=== PATIENT | female | born 1945 | race Caucasian/White ===

== ENCOUNTER 2017-03-17 17:57 | Inpatient (IN) ==
[2017-03-17] MEDS ORDERED: *HR* Morphine 2 MG/ML SYRINGE IVP ONE (18:49)
[2017-03-17] MEDS ORDERED: Ondansetron 4 MG/2 ML VIAL IVP ONE (18:49)
[2017-03-17] MEDS: 0.9 % Sodium Chloride 1,000 ML IVC SCH (19:01)
[2017-03-17 19:38] LABS: Basophils % 0.1 %; Eosinophils % 0.1 %; Hematocrit 40.5 % (35.3-44.9); Hemoglobin 12.8 g/dL (11.5-15.4); Immature Granulocytes % 2.9 % (0-4); Lymphocytes # 0.8 K/mcL (0.6-4.6); Lymphocytes % 3.5 %; Mean Corpuscular HGB Conc 31.6 g/dL (31.6-35.5); Mean Corpuscular Hemoglobin 28.6 pg (28.0-33.3); Mean Corpuscular Volume 90.6 fL (83.0-100.0); Mean Platelet Volume 10.4 fL (9.4-12.4); Monocytes # 1.2 K/mcL (0.0-1.3); Monocytes % 5.3 %; Neutrophils # 20.1 K/mcL (1.6-8.9); Platelet Count 165 K/mcL (140-400); Red Blood Count 4.47 M/mcL (3.82-4.97); Red Cell Distribution Width 14.1 % (11.5-14.5); Segmented Neutrophils % 88.1 %
[2017-03-17 19:54] LABS: Bilirubin,Direct 0.3 mg/dL (0.0-0.5); Bilirubin,Indirect 0.4 mg/dL (0.0-1.2); Bilirubin,Total 0.7 mg/dL (0.2-1.2); Calcium 10.5 mg/dL (8.6-10.8); Globulin 3.1 g/dL (2.4-3.5); Potassium 4.7 mEq/L (3.5-4.5); Total Protein 6.1 g/dL (6.0-8.3)
[2017-03-17] MEDS ORDERED: 0.9 % Sodium Chloride 1,000 ML IVC ONE (20:01)
--- NOTE | 2017-03-17 20:01 | Emergency Department Note ---
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.0 - Congenital hydronephrosis Sepsis Qualifiers: Sepsis type: sepsis due to unspecified organism Qualified Code(s): A41.9 - Sepsis, unspecified organism Disposition: Admitted As Inpatient Condition: Good Referrals: Belinda Cleaning, [facility] [employer] [Primary Care Provider] - Forms: Work/School Release, ED Satisfaction Letter Time of Disposition: 21:56 Abdominal Pain HPI - General Chief Complaint: ED Abdominal Pain Stated Complaint: RLQ pain Time Seen by Provider: 03/17/17 18:32 Source: patient Mode of arrival: ambulatory Limitations: no limitations Nursing Notes Reviewed: Yes Vital Signs Reviewed: Yes - History of Present Illness HPI Narrative: Patient presents emergency room complaining of acute onset right lower quadrant abdominal pain. Patient's symptoms came on acutely this morning. Since then she has had pain in the right lower quadrant of her abdomen and has not been able to eat or drink anything. Denies any fevers or chills chest features of breath headache or vision change. Main complaint is symptoms the right lower part of her abdomen. Denies any trauma or injury. Pt Subjective Complaint: abdominal pain Onset (ago): hour(s) Consistency: constant Location: RLQ Pain Severity: mild Pain Scale: 0 Quality: aching Radiation: RLQ Migration to: no migration Improves with: nothing Worsens with: nothing Context: history of similar episodes Associated symptoms: Reports: nausea, vomiting. Denies: diarrhea, fever, chills , constipation Treatments prior to arrival: none - Related Data Home Medications Medication Instructions Recorded Confirmed Aspirin Enteric Coated [Aspirin EC] 81 mg PO DAILY 03/17/17 03/17/17 Propranolol LA (24 HR) [Inderal LA] 60 mg PO DAILY 03/17/17 03/17/17 Ranitidine HCl [Acid Napper Runner] 150 mg PO DAILY PRN 03/17/17 03/17/17 predniSONE [PredniSONE] 5 mg PO DAILY 03/17/17 03/17/17 Allergies Allergy/AdvReac Type Severity Reaction Status Date / Time acetaminophen [From Midrin] AdvReac Unknown Verified 03/17/17 20:30 Amoxicillin [From Augmentin] AdvReac Vomiting Verified 03/17/17 20:30 clavulanic acid AdvReac Vomiting Verified 03/17/17 20:30 [From Augmentin] dichloralphenazone AdvReac Unknown Verified 03/17/17 20:30 [From Midrin] Iodinated Contrast- Oral and AdvReac Dizziness Verified 03/17/17 20:30 IV Dye Isometheptene AdvReac Unknown Verified 03/17/17 20:30 All systems ED: reviewed and negative except as stated. Constitutional: Denies: fever, chills Cardiovascular: Denies: chest pain, palpitations, dyspnea on exertion Respiratory: Denies: dyspnea, wheezes Gastrointestinal: Reports: abdominal pain, nausea, vomiting. Denies: diarrhea, constipation Genitourinary: Denies: dysuria, frequency Musculoskeletal: Denies: back pain, neck pain Neurological: Denies: headache Abdominal Pain PMH - Past Medical History Medical history: Reports: renal disease Female Surgical History: Reports: cholecystectomy, hysterectomy Psychiatric history: Reports: no psych history - Social History Smoking status: Never smoker Alcohol use: Reports: none Drug use: Reports: none Physical Exam - General Limitations: no limitations General appearance: alert - Chest Chest inspection: Present: normal inspection, symmetric chest wall rise. Absent : tenderness - Respiratory Respiratory exam: Present: normal lung sounds bilaterally. Absent: respiratory distress, wheezes, accessory muscle use - Cardiovascular Cardiovascular exam: Present: regular rate, normal rhythm, normal heart sounds - Abdominal Exam Abdominal exam: Present: soft, tenderness (Patient has abdominal pain the right lower quadrant of the abdomen.). Absent: Non-Tender, distention, guarding, rebound, rigidity - Extremities Exam Extremities exam: Present: normal inspection, full ROM, normal capillary refill. Absent: tenderness - Back Exam Back exam: Present: normal inspection - Neurological Exam Neurological exam: Present: alert, oriented X3 - Psychiatric Psychiatric exam: Present: normal affect, normal mood - Skin Skin exam: Present: warm, dry, intact, normal color Course Course Narrative: Patient seen and examined at the time of arrival. See history of present illness. 71-year-old female with onset of abdominal pain starting early persistent worsening right lower quadrant abdominal discomfort. She has had intermittent nausea and vomiting with noted diarrhea. Patient was concerned today because the symptoms were not getting any better. She presented to the emergency room secondary to the discomfort in her abdomen. She has never had any like this before. She does have a history of total hysterectomy. No other intra-abdominal pathology. On presentation here her blood pressure was low and her heart rate was elevated. An immediate bedside ultrasounds completed looking at the inferior vena cava and there is no visible signs of aneurysm dissection or free fluid in the abdomen. Patient had no specific tenderness in the midepigastric region radiating down the central aspect of the abdomen. All of her pain appeared to be isolated in the right lower quadrant of the abdomen. Patient is concerning for possible intra-abdominal pathology including renal calculi urinary tract infection appendicitis duodenitis, ileitis. Patient had imaging completed the abdomen at this time. Fluids pain medication nausea medication be given. Patient does not have any acute signs of infectious etiology she does have tachycardia but otherwise is afebrile. Patient will have symptom control completed here. The rest of her physical exam is benign. She did note that she had intermittent chest twinges yesterday and several days prior to that. EKG troponin and chest x-ray and on for thoroughness of evaluation. Disposition pending this workup and treatment course. Patient is resting in the bed at this time and no significant distress but is concerning for possible intra-abdominal pathology - Reevaluation(s) Reevaluation #1: Patient is still tachycardic after fluids and pain medication. Labs are coming back with significantly elevated white blood cell count. Kidney function appears to be at baseline. Incidentally troponin that was ordered secondary to her generalized complaint of chest discomfort and twinges in her chest wall was elevated at 0.16. Patient does not having chest pain and has not had any chest pain for greater than 24 hours. Her EKG shows normal morphology based on the rhythm here. Doing chest pain at this time. Patient provided with aspirin at this point. CT imaging was resulted showing right-sided obstructing renal stone with significant hydronephrosis and stranding around the kidney. Urinalysis is still pending. Patient has concerns for possible sepsis secondary to urinary tract infection. Prophylactically start antibiotics at this time. Initially patient did not have symptoms consistent with infectious etiology but has developed or been found to have potential infectious etiology at this time. Patient is stable antibiotics ordered disposition pending treatment course. Patient will need admission hospital definitively for either elevated troponin or renal calculi with urinary tract infection. Pulses responding to fluids. Patient's blood pressure is usually 90-100 systolic at home even without being ill.. Patient is on chronic steroid use OF stress dose steroids given at this time. She says if she feels much better at this time she sitting upright mentating. Blood pressure still appears to be labile but she does not appear to be focally septic at this time. And BE obtained Time: 20:23 Reevaluation #2: Patient found a urinary tract infections this time. Emergent consult placed to the urologist Dr. Choudhury for consult on impacted stone with infection. stress dose steroids given. admission to be completed. We reviewed the presentation obstructing stone and urinary tract infection. Recommended admission stabilization and possible stenting tomorrow. Consult with the hospitalist at this time. Consult placed in the chart at this point. Waiting for hospice to call back for admission process to be completed. Sepsis determined at 2145 hrs. Time: 21:36 Reevaluation #3: Patient discussed with the hospitalist Dr. Cole. We reviewed the presentation symptoms medical intervention as well as the antibiotics fluids and consultation discussed here in the emergency room. Recommendation at this time is to provide a second gram of Rocephin here in the ED and continue maintenance fluids. Patient is otherwise comfortable in the bed showing no acute signs of decompensation. [address] Patient will be evaluated and treated here in the emergency room to the admission process is completed Time: 22:08 Vital Signs Temperature 98.0 F 03/17/17 18:25 Pulse Rate 116 03/17/17 18:25 Respiratory Rate 18 03/17/17 18:25 Blood Pressure 97/66 03/17/17 18:25 O2 Sat by Pulse Oximetry 93 03/17/17 18:25 Temperature 98.0 F 03/17/17 18:25 Pulse Rate 113 03/17/17 19:33 Respiratory Rate 16 03/17/17 19:33 Blood Pressure 100/50 03/17/17 19:33 O2 Sat by Pulse Oximetry 94 03/17/17 19:33 Oxygen Delivery Oxygen Delivery Room Air Abdominal Pain - MDM Narrative Medical decision making narrative: Obstructing renal calculi, right-sided hydronephrosis, right-sided hydroureter elevated troponin - Medical Records Medical records reviewed: Yes I reviewed the patient's medical records. - Lab Data Lab results reviewed: Yes I reviewed the patient's lab results. Result diagrams: 03/17/17 19:30 07/17/17 19:30 Lab Results 03/17/17 03/17/17 Range/Units 19:30 19:30 WBC 22.8 H (4.3-11.1) K/mcL RBC 4.47 (3.82-4.97) M/mcL Hgb 12.8 (11.5-15.4) g/dL Hct 40.5 (35.3-44.9) % MCV 90.6 (83.0-100.0) fL MCH 28.6 (28.0-33.3) pg MCHC 31.6 (31.6-35.5) g/dL RDW 14.1 (11.5-14.5) % Plt Count 165 (140-400) K/mcL MPV 10.4 (9.4-12.4) fL Immature Gran % 2.9 (0-4) % Seg Neutrophils % 88.1 % Lymphocytes % 3.5 % Monocytes % 5.3 % Eosinophils % 0.1 % Basophils % 0.1 % Neutrophils # 20.1 H (1.6-8.9) K/mcL Lymphocytes # 0.8 (0.6-4.6) K/mcL Monocytes # 1.2 (0.0-1.3) K/mcL Eosinophils # 0.0 (0.0-0.6) K/mcL Basophils # 0.0 (0.0-0.2) K/mcL Sodium 136 (136-145) mEq/L Potassium 4.7 H (3.5-4.5) mEq/L Chloride 105 (98-109) mEq/L Carbon Dioxide 22 (19-29) mEq/L BUN 30 H (7-20) mg/dL Creatinine 1.59 H (0.57-1.11) mg/dL Est GFR ( Amer) 39 L (> 60) Est GFR (Non-Af Amer) 32 L (> 60) BUN/Creatinine Ratio 19 (6-26) Glucose 91 (70-99) mg/dL Calculated Osmolality 288 (280-300) Calcium 10.5 (8.6-10.8) mg/dL Total Bilirubin 0.7 (0.2-1.2) mg/dL Direct Bilirubin 0.3 (0.0-0.5) mg/dL Indirect Bilirubin 0.4 (0.0-1.2) mg/dL AST 30 (5-34) Units/L ALT 24 (0-55) Units/L Alkaline Phosphatase 100 (38-126) Units/L Serum Total Protein 6.1 (6.0-8.3) g/dL Albumin 3.0 L (3.5-5.0) g/dL Globulin 3.1 (2.4-3.5) g/dL Albumin/Globulin Ratio 1.0 L (1.1-2.2) Lipase 20 (8-78) Units/L - Radiology Data Radiology results reviewed: Yes I reviewed the patient's radiology results. CT imaging confirms right-sided instructing stone with hydronephrosis and hydroureter. Patient also has elevated troponin. - EKG Data EKG attestation: Yes I reviewed and interpreted this EKG. EKG shows normal: sinus rhythm, intervals, QRS complexes, ST-T waves Rate: tachycardia Rhythm: NSR [place]/QRS: normal When compared to previous EKG there are: no significant changes Interpretation: no acute changes, unchanged when compared to prior tracing (date ) (11/08/12) Critical Care Time Critical Care Time: Yes Total Critical Care Time: 45 Attestation: Critical care performed: Time is exclusive of separately billable procedures. Time includes: direct patient care, patient reassessment, coordination of patient care, interpretation of data (laboratory data, radiology data, and respiratory data), review of patient's medical records, medical consultation and documentation of patient care. Procedures included in critical care time: Procedures excluded from critical care time:
[2017-03-17] MEDS ORDERED: Aspirin 81 MG TAB.CHEW PO STA (20:07)
[2017-03-17 21:00] LABS: Bilirubin,Urine Negative (Negative); Blood,Urine Moderate (Negative); Clarity,Urine Slightly Cloudy (Clear); Color,Urine Yellow (Yellow); Glucose,Urine (UA) Normal (Normal); Ketones,Urine Negative (Negative); Leukocyte Esterase,Urine Large (Negative); Nitrite,Urine Negative (Negative); Protein,Urine 30 mg/dL (Neg-Trace); Urobilinogen,Urine Normal (Normal)
[2017-03-17] MEDS ORDERED: methylPREDNISolone 125 MG/2 ML VIAL IVP ONE (21:12)
[2017-03-17 21:17] LABS: Bacteria,Urine Many per hpf (None-Few); Squamous Epithelial Cell,Urine Few per lpf (None-Few); WBC,Urine 15-30 per hpf (0-3)
[2017-03-17] MEDS ORDERED: 0.9 % Sodium Chloride 1,000 ML IVC SCH (22:15)
[2017-03-17] MEDS ORDERED: Acetaminophen 325 MG TABLET PO PRN (22:58)
[2017-03-17] MEDS ORDERED: Ondansetron 4 MG/2 ML VIAL IVP PRN (22:58)
[2017-03-17] MEDS ORDERED: Naloxone 0.4 MG/ML INJ IVP PRN (22:58)
[2017-03-17] MEDS ORDERED: *HR* Morphine 2 MG/ML SYRINGE IVP PRN (22:58)
--- NOTE | 2017-03-17 23:14 | Internal Med History&Physical ---
Date of Encounter: 03/17/17 Time of Encounter: 23:09 Assessment and Plan (1) Pyelonephritis, acute Current visit: Yes Status: Acute 71 yo Female with right sided abdominal pain, known kidney stones, WBC of 22.8, elevated neutrophil count, lactic acid of 2.9, tachycardia, lower end of normal blood pressure associated with CT of the abdomen and pelvis demonstrating right- sided hydronephrosis and hydroureter with right distal ureter calcification measuring approximately 7 mm. Plan: - Patient has received 2 L normal saline bolus - Urine cultures collected - Currently receiving Rocephin IV and will receive Rocephin every 24 hours - Blood cultures collected and pending - Consult to urology for obstructing calculi. (2) Sepsis Current visit: Yes Status: Acute Sepsis secondary to obstructing calculi as described above. Suspect pyelonephritis. Plan: - Sepsis protocol - 2 L IV fluid provided - Lactic acid elevated, second lactic acid ordered and pending - Blood cultures collected - Urine culture collected - Patient receiving IV antibiotics. - Patient on 5 mg chronic prednisone at home, continue hydrocortisone every 8 hours in the setting of sepsis and low blood pressure. Qualifiers: Sepsis type: sepsis due to unspecified organism Qualified Code(s): A41.9 - Sepsis, unspecified organism (3) Acute kidney injury Current visit: Yes Status: Acute Acute kidney injury secondary to obstructing right calculi and distal ureter. Suspect improvement after removal of obstructing calculi. Plan: - Continue maintenance fluids - Monitor renal function with a.m. labs - Avoid nephrotoxic medications and renally dose antibiotics (4) Calculus of kidney Current visit: Yes Status: Acute Patient presenting with right lower quadrant abdominal pain, CT of the abdomen and pelvis demonstrates obstructing distal right ureter calculi. - Urology has been notified. - Nothing by mouth after midnight (5) Elevated troponin I level Current visit: Yes Status: Acute Elevated troponin at 0.16, likely secondary to tachycardia in the setting of sepsis. Patient without chest pain. Plan: - Trend troponins 3 - credit rating checker - EKG - Continue aspirin (6) Chronic steroid use Current visit: Yes Status: Acute Patient takes 5 mg prednisone daily and has been on a taper for roughly 6 weeks from 15 mg. Her blood pressure is slightly lower but not significantly hypotensive. She has received IV Solu-Medrol in the emergency department. Plan: - Continue 5 mg prednisone daily - Monitor blood pressure and if it becomes consistently hypotensive will provide stress dosing. Internal Medicine - H&P: HPI Chief complaint: Abdominal pain Admitted From: Emergency Dept Plans for Post Hospital Care: Home History of present illness: Ms. Garcia is a 71 year old female with unknown type of muscular dystrophy, chronic headaches and stage III kidney disease presented to [facility] with abdominal pain. She states that she woke up around 4:30 this morning abruptly with sharp right lower quadrant abdominal pain. She said that came on without warning and she did not have any other previous pain like this. She said she has had previous abdominal pain in the past but nothing like this. The pain is described as sharp radiating down to her groin and right back. Pain severity 10 out of 10 at its worse much improved with pain medications. At home she did take Tylenol to try to improve her pain without any relief. Associated symptoms include chills, diaphoresis, nausea vomiting, dry mouth. Position made her pain worse. She is unsure if there is any blood in her urine but not to her knowledge. She denies any chest pain, chest pressure at rest or with exertion or currently. She denies any heart disease. She denies any history of renal stones but has been seeing Dr. Bowers with nephrology for her stage III renal failure. She did have a history of by mouth calcium and hypercalcemia but not recently. For her muscle disorder she has been following with rheumatology and roughly 6 weeks ago was put back on by mouth prednisone with a slow taper. She continues to take prednisone at 5 mg orally daily. Discussion regarding her blood pressures she said on average her systolic blood pressure is around 110. Past Med Surg Social Fam HX - Past Medical History Medical history: renal disease Psychiatric history: no psych history - Social History Smoking Status: Never smoker Smokeless Tobacco Status: No Alcohol use: none Drug use: none - Family History Father Living Status: Hx Family Cardiac Disorders: Yes ([place]) Internal Medicine - H&P: Meds Aspirin Enteric Coated [Aspirin EC] 81 mg PO DAILY 03/17/17 [History] Propranolol LA (24 HR) [Inderal LA] 60 mg PO DAILY 03/17/17 [History] Ranitidine HCl [Acid Dry House Operator] 150 mg PO DAILY PRN 03/17/17 [History] predniSONE [PredniSONE] 5 mg PO DAILY 03/17/17 [History] Allergies acetaminophen [From Midrin] Adverse Reaction (Verified 03/17/17 20:30) Unknown Amoxicillin [From Augmentin] Adverse Reaction (Verified 03/17/17 20:30) Vomiting clavulanic acid [From Augmentin] Adverse Reaction (Verified 03/17/17 20:30) Vomiting dichloralphenazone [From Midrin] Adverse Reaction (Verified 03/17/17 20:30) Unknown Iodinated Contrast- Oral and IV Dye Adverse Reaction (Verified 03/17/17 20:30) Dizziness Isometheptene Adverse Reaction (Verified 03/17/17 20:30) Unknown All Systems PM: A 10-system review of systems was performed and is negative for pertinent findings except as documented above in the HPI. - Constitutional Constitutional: chills, fever(s), no night sweats - EENT Eyes: no change in vision, no discharge, no pain, no photophobia Ears: no ear discharge, no ear pain, no tinnitus Nose, mouth and throat: no dysphagia, no nasal discharge, no neck pain, no sore throat - Cardiovascular Cardiovascular ROS IM: no chest pain, no diaphoresis, no dyspnea, no lightheadedness, no palpitations, no syncope - Respiratory Respiratory: no cough, no dyspnea, no wheezing, no excessive phlegm production - Gastrointestinal Gastrointestinal: abdominal pain, nausea, vomiting, no diarrhea, no hematemesis , no hematochezia, no melena - Genitourinary Genitourinary: flank pain, no change in urinary stream, no dysuria, no hematuria - Musculoskeletal Musculoskeletal ROS IM: no numbness, no tingling - Integumentary Integumentary IM: no rash, no unusual bruising - Neurological Neurological ROS: no confusion, no convulsions, no focal weakness, no numbness, no tingling, no tremor(s) - Hematologic/Lymphatic Hematologic/Lymphatic: no easy bruising - Constitutional Vitals: Temp Pulse Resp BP Pulse Ox 98.0 F 107 18 95/64 94 03/17/17 18:25 03/17/17 22:03 03/17/17 22:34 03/17/17 22:34 03/17/17 22:03 Exam: General: Patient alert, awake, oriented 3, interactive, in no acute distress HEENT: Normocephalic, atraumatic, pupils equal reactive to light, nasal cavity patent and open septum median position, oral mucosa moist, uvula midline, neck supple trachea midline no palpable lymphadenopathy, no thyromegaly. Chest: Symmetric bilateral correlating with respiratory effort, effort nonlabored. Cardiac: Tachycardia,. no bruits appreciated bilateral carotids, Radial pulses 2 + bilateral, posterior tibial and dorsal pedal pulses 2+ bilateral. Respiratory: Clear to auscultation all lung epps Abdomen: Mildly distended, nontender, positive bowel sounds, no palpable masses appreciated on examination Extremities: Symmetric bilateral, bilateral lower extremities without erythema or edema patient moving all 4 extremities spontaneously. Spastic muscles of the forearm, bilaterally. Neurologic: No focal deficits appreciated on examination. Face symmetric, muscle strength symmetric bilateral upper and lower extremities. Internal Med - H&P Results - Labs CBC & Chem 7: 03/17/17 19:30 03/17/17 19:30
[2017-03-18] MEDS: 0.9 % Sodium Chloride 1,000 ML IVC SCH ×3 (00:13→19:43)
[2017-03-18 01:11] LABS: Basophils % 0.1 %; Hematocrit 31.7 % (35.3-44.9); Lymphocytes % 4.6 %; Mean Corpuscular HGB Conc 30.9 g/dL (31.6-35.5); Mean Corpuscular Hemoglobin 28.4 pg (28.0-33.3); Mean Corpuscular Volume 91.9 fL (83.0-100.0); Mean Platelet Volume 10.1 fL (9.4-12.4); Monocytes # 0.9 K/mcL (0.0-1.3); Platelet Count 130 K/mcL (140-400); Red Blood Count 3.45 M/mcL (3.82-4.97); Red Cell Distribution Width 14.1 % (11.5-14.5); Segmented Neutrophils % 88.3 %
[2017-03-18 01:25] LABS: Bilirubin,Direct 0.3 mg/dL (0.0-0.5); Bilirubin,Indirect 0.2 mg/dL (0.0-1.2); Bilirubin,Total 0.5 mg/dL (0.2-1.2); Globulin 2.2 g/dL (2.4-3.5); Hemoglobin 9.8 g/dL (11.5-15.4)
[2017-03-18 01:26] LABS: Albumin 2.3 g/dL (3.5-5.0); Total Protein 4.5 g/dL (6.0-8.3)
[2017-03-18 01:28] LABS: Albumin 2.4 g/dL (3.5-5.0); Albumin/Globulin Ratio 1.1 (1.1-2.2); Bilirubin,Total 0.5 mg/dL (0.2-1.2); Globulin 2.2 g/dL (2.4-3.5); Magnesium 0.9 mg/dL (1.6-2.6); Phosphorous 3.3 mg/dL (2.3-4.7); Potassium 4.1 mEq/L (3.5-4.5); Total Protein 4.6 g/dL (6.0-8.3)
[2017-03-18 01:31] LABS: Calcium 8.2 mg/dL (8.6-10.8)
[2017-03-18 01:45] LABS: Platelet Estimate Decreased (Normal)
[2017-03-18] MEDS ORDERED: *HR* Enoxaparin 40 MG/0.4 ML SYRINGE SQ SCH (06:00)
[2017-03-18] MEDS ORDERED: Pantoprazole 40 MG VIAL IVP SCH (06:30)
--- NOTE | 2017-03-18 07:20 | Urology - Consult Note ---
Date of Encounter: 03/18/17 Time of Encounter: 07:18 - Assessment and Plan (1) Right ureteral calculus Current Visit: Yes Status: Acute Assessment and plan: Patient will be taken to the operating room today for cystoscopy and right ureteral stent placement (2) Pyelonephritis, acute Current Visit: Yes Status: Acute Assessment and plan: Agree with continuation of broad-spectrum antibiotics until cultures return. Urology CN:HPI Consult date: 03/18/17 Reason for consult Urology: Hydronephrosis Requesting physician: Omer Floyd History of present illness: Jayda is a 71-year-old female with a history of severe right-sided flank pain which brought her to the emergency department. Patient was found to have a distal right 7 mm ureteral stone with multiple bilateral renal calculi. Patient was also found to be in sepsis with a white count of 22,000. Patient states that she feels slightly better this morning. Her pain is currently controlled. Past Med Surg Social Fam HX - Past Medical History Medical history: renal disease Psychiatric history: no psych history - Past Surgical History Surgical History: hysterectomy - Social History Smoking Status: Never smoker Smokeless Tobacco Status: No Alcohol use: none Drug use: none - Family History Father Living Status: Hx Family Cardiac Disorders: Yes ([place]) Medications and Allergies Aspirin Enteric Coated [Aspirin EC] 81 mg PO DAILY 03/17/17 [History] Propranolol LA (24 HR) [Inderal LA] 60 mg PO DAILY 03/17/17 [History] Ranitidine HCl [Acid Intensive Care Nurse] 150 mg PO DAILY PRN 03/17/17 [History] predniSONE [PredniSONE] 5 mg PO DAILY 03/17/17 [History] Allergies acetaminophen [From Midrin] Adverse Reaction (Verified 03/17/17 20:30) Unknown Amoxicillin [From Augmentin] Adverse Reaction (Verified 03/17/17 20:30) Vomiting clavulanic acid [From Augmentin] Adverse Reaction (Verified 03/17/17 20:30) Vomiting dichloralphenazone [From Midrin] Adverse Reaction (Verified 03/17/17 20:30) Unknown Iodinated Contrast- Oral and IV Dye Adverse Reaction (Verified 03/17/17 20:30) Dizziness Isometheptene Adverse Reaction (Verified 03/17/17 20:30) Unknown Review of Systems - Constitutional no fever(s) - EENT Nose, mouth and throat: no dizziness - Cardiovascular no chest pain - Respiratory no cough - Gastrointestinal abdominal pain - Genitourinary Genitourinary: as per HPI (Patient states that she has vaginal prolapse) - Musculoskeletal back pain - Integumentary no erythema - Neurological no confusion - Psychiatric no anxiety Exam Initial Vital Signs Temp Pulse Resp BP Pulse Ox 98.0 F 116 18 97/66 93 03/17/17 18:25 03/17/17 18:25 03/17/17 18:25 03/17/17 18:25 03/17/17 18:25 - General physical appearance Present: well developed - Eyes Present: PERRL - ENT Present: normal nares - Neck Present: no masses - Respiratory Present: normal respiratory effort - Cardiovascular Cardiovascular exam IM: RRR - Abdomen Abdomen: Present: soft Urology Results - Labs 03/18/17 00:55 03/18/17 00:55 Abnormal lab results WBC 22.6 K/mcL (4.3-11.1) H 03/18/17 00:55 RBC 3.45 M/mcL (3.82-4.97) L 03/18/17 00:55 Hgb 9.8 g/dL (11.5-15.4) L D 03/18/17 00:55 Hct 31.7 % (35.3-44.9) L 03/18/17 00:55 MCHC 30.9 g/dL (31.6-35.5) L 03/18/17 00:55 Plt Count 130 K/mcL (140-400) L 03/18/17 00:55 Neutrophils # 20.0 K/mcL (1.6-8.9) H 03/18/17 00:55 Platelet Estimate Decreased (Normal) L 03/18/17 00:55 Chloride 113 mEq/L (98-109) H 03/18/17 00:55 Carbon Dioxide 18 mEq/L (19-29) L 03/18/17 00:55 BUN 29 mg/dL (7-20) H 03/18/17 00:55 Creatinine 1.37 mg/dL (0.57-1.11) H 03/18/17 00:55 Est GFR ( Amer) 46 (> 60) L 03/18/17 00:55 Est GFR (Non-Af Amer) 38 (> 60) L 03/18/17 00:55 Calcium 8.2 mg/dL (8.6-10.8) L D 03/18/17 00:55 Magnesium 0.9 mg/dL (1.6-2.6) L 03/18/17 00:55 Troponin I 0.06 ng/mL (0-0.03) H* 03/18/17 05:16 Serum Total Protein 4.6 g/dL (6.0-8.3) L D 03/18/17 00:55 Albumin 2.4 g/dL (3.5-5.0) L 03/18/17 00:55 Globulin 2.2 g/dL (2.4-3.5) L 03/18/17 00:55 Urine Clarity Slightly Cloudy (Clear) A 03/17/17 20:39 Urine Protein 30 mg/dL (Neg-Trace) H 03/17/17 20:39 Urine Blood Moderate (Negative) H 03/17/17 20:39 Ur Leukocyte Esterase Large (Negative) H 03/17/17 20:39 Urine Microscopic RBC 3-5 per hpf (0-3) H 03/17/17 20:39 Urine Microscopic WBC 15-30 per hpf (0-3) H 03/17/17 20:39 Urine Bacteria Many per hpf (None-Few) H 03/17/17 20:39 Ur Culture Indicated? YES (NO) A 03/17/17 20:39 All other labs normal. - Imaging CT scan - abdomen: image reviewed CT scan - pelvis: image reviewed Consult Discharge Plan - Plan Referrals: Belinda Cleaning, CALCULATION REVIEWER [Primary Care Provider] -
[2017-03-18] MEDS ORDERED: predniSONE 5 MG TABLET PO SCH (09:00)
[2017-03-18] MEDS ORDERED: Aspirin Enteric Coated 81 MG Tablet PO SCH (09:00)
[2017-03-18] MEDS ORDERED: Propranolol LA (24 HR) 60 MG CAP.SA.24H PO SCH (09:00)
--- NOTE | 2017-03-18 10:59 | Anesthesia Evaluation PreOp ---
Date of Encounter: 03/18/17 Time of Encounter: 10:49 - Past History Planned Operation: C&P/R-stent Cardiac History: [place] (Troponin bump this hospitalization - likely secondary to demand ischemia [Tachy/sepsis]) Pulmonary History: Denies Any Significant HX PASSENGER TIRE BUILDER History: Denies Any Significant HX Other Medical History: Renal (CKD stage 3. R-ureteral calculus & obstructive uropathy this hospitalization), Other (Chronic Steroid use 5mg/day re: muscular disorder vs. Muscular Dystrophy? (6 week taper down from 15mg - per Rheumatology )) Anesthesia History: No Prior Anesthetic Complications, Past Anesthesia (Hernia, ARNAV, shoulder RCR, L-leg x 3 surgeries) Alcohol Use: none Drug use: none Medications and Allergies Aspirin Enteric Coated [Aspirin EC] 81 mg PO DAILY 03/17/17 [History] Propranolol LA (24 HR) [Inderal LA] 60 mg PO DAILY 03/17/17 [History] Ranitidine HCl [Acid Nuclear Powerplant Mechanic Helper] 150 mg PO DAILY PRN 03/17/17 [History] predniSONE [PredniSONE] 5 mg PO DAILY 03/17/17 [History] Allergies acetaminophen [From Midrin] Adverse Reaction (Verified 03/17/17 20:30) Unknown Amoxicillin [From Augmentin] Adverse Reaction (Verified 03/17/17 20:30) Vomiting clavulanic acid [From Augmentin] Adverse Reaction (Verified 03/17/17 20:30) Vomiting dichloralphenazone [From Midrin] Adverse Reaction (Verified 03/17/17 20:30) Unknown Iodinated Contrast- Oral and IV Dye Adverse Reaction (Verified 03/17/17 20:30) Dizziness Isometheptene Adverse Reaction (Verified 03/17/17 20:30) Unknown - Meds/Allergy Pre-op Review Medications Reviewed: Yes Allergies Reviewed: Yes Beta Blockers on Current Med List: No Anesthesia Results - Labs 03/18/17 00:55 03/18/17 00:55 Laboratory Results WBC 22.6 K/mcL (4.3-11.1) H 03/18/17 00:55 RBC 3.45 M/mcL (3.82-4.97) L 03/18/17 00:55 Hgb 9.8 g/dL (11.5-15.4) L D 03/18/17 00:55 Hct 31.7 % (35.3-44.9) L 03/18/17 00:55 MCV 91.9 fL (83.0-100.0) 03/18/17 00:55 MCH 28.4 pg (28.0-33.3) 03/18/17 00:55 MCHC 30.9 g/dL (31.6-35.5) L 03/18/17 00:55 RDW 14.1 % (11.5-14.5) 03/18/17 00:55 Plt Count 130 K/mcL (140-400) L 03/18/17 00:55 MPV 10.1 fL (9.4-12.4) 03/18/17 00:55 Immature Gran % 3.0 % (0-4) 03/18/17 00:55 Seg Neutrophils % 88.3 % 03/18/17 00:55 Lymphocytes % 4.6 % 03/18/17 00:55 Monocytes % 4.0 % 03/18/17 00:55 Eosinophils % 0.0 % 03/18/17 00:55 Basophils % 0.1 % 03/18/17 00:55 Neutrophils # 20.0 K/mcL (1.6-8.9) H 03/18/17 00:55 Lymphocytes # 1.0 K/mcL (0.6-4.6) 03/18/17 00:55 Monocytes # 0.9 K/mcL (0.0-1.3) 03/18/17 00:55 Eosinophils # 0.0 K/mcL (0.0-0.6) 03/18/17 00:55 Basophils # 0.0 K/mcL (0.0-0.2) 03/18/17 00:55 Platelet Estimate Decreased (Normal) L 03/18/17 00:55 Sodium 137 mEq/L (136-145) 03/18/17 00:55 Potassium 4.1 mEq/L (3.5-4.5) 03/18/17 00:55 Chloride 113 mEq/L (98-109) H 03/18/17 00:55 Carbon Dioxide 18 mEq/L (19-29) L 03/18/17 00:55 BUN 29 mg/dL (7-20) H 03/18/17 00:55 Creatinine 1.37 mg/dL (0.57-1.11) H 03/18/17 00:55 Est GFR ( Amer) 46 (> 60) L 03/18/17 00:55 Est GFR (Non-Af Amer) 38 (> 60) L 03/18/17 00:55 BUN/Creatinine Ratio 21 (6-26) 03/18/17 00:55 Glucose 84 mg/dL (70-99) 03/18/17 00:55 Calculated Osmolality 289 (280-300) 03/18/17 00:55 Lactic Acid 1.2 mmol/L (0.5-2.2) 03/18/17 00:55 Calcium 8.2 mg/dL (8.6-10.8) L D 03/18/17 00:55 Phosphorus 3.3 mg/dL (2.3-4.7) 03/18/17 00:55 Magnesium 0.9 mg/dL (1.6-2.6) L 03/18/17 00:55 Total Bilirubin 0.5 mg/dL (0.2-1.2) 03/18/17 00:55 Direct Bilirubin 0.3 mg/dL (0.0-0.5) 03/18/17 00:55 Indirect Bilirubin 0.2 mg/dL (0.0-1.2) 03/18/17 00:55 AST 21 Units/L (5-34) 03/18/17 00:55 ALT 18 Units/L (0-55) 03/18/17 00:55 Alkaline Phosphatase 69 Units/L (38-126) 03/18/17 00:55 Troponin I 0.06 ng/mL (0-0.03) H* 03/18/17 05:16 Serum Total Protein 4.6 g/dL (6.0-8.3) L D 03/18/17 00:55 Albumin 2.4 g/dL (3.5-5.0) L 03/18/17 00:55 Globulin 2.2 g/dL (2.4-3.5) L 03/18/17 00:55 Albumin/Globulin Ratio 1.1 (1.1-2.2) 03/18/17 00:55 Lipase 20 Units/L (8-78) 03/17/17 19:30 Urine Color Yellow (Yellow) 03/17/17 10:14 Urine Clarity Slightly Cloudy (Clear) A 03/17/17 10:14 Urine pH 6.0 pH Units (5.0-8.0) 03/17/17 10:14 Ur Specific [place]ell 1.010 (1.010-1.025) 03/17/17 10:14 Urine Protein 30 mg/dL (Neg-Trace) H 03/17/17 10:14 Urine Glucose (UA) Normal mg/dL (Normal) 03/17/17 10:14 Urine Ketones Negative mg/dL (Negative) 03/17/17 10:14 Urine Blood Moderate (Negative) H 03/17/17 10:14 Urine Nitrite Negative (Negative) 03/17/17 10:14 Urine Bilirubin Negative (Negative) 03/17/17 10:14 Urine Urobilinogen Normal mg/dL (Normal) 03/17/17 10:14 Ur Leukocyte Esterase Large (Negative) H 03/17/17 10:14 Urine Microscopic RBC 3-5 per hpf (0-3) H 03/17/17 10:14 Urine Microscopic WBC 15-30 per hpf (0-3) H 03/17/17 10:14 Ur Squamous Epith Cells Few per lpf (None-Few) 03/17/17 10:14 Urine Bacteria Many per hpf (None-Few) H 03/17/17 10:14 Ur Culture Indicated? YES (NO) A 03/17/17 10:14 Impressions Abdomen/Pelvis CT 03/17/17 18:49 IMPRESSION: Numerous bilateral renal calculi Hydronephrosis and hydroureter on the right with a right distal ureter calcification as described Diverticulosis without findings diagnostic of diverticulitis Soft tissue rounded nodule in the region of the pancreas on image 42. This may represent volume averaging with an adjacent lymph node. A pancreatic lesion would be difficult to exclude as this is different in density compared to the remainder of the pancreas. D/ / Bandar Hill / Bandar Hill Interpreting Provider: Bandar Hill Chest X-Ray 03/17/17 20:05 IMPRESSION: Focal airspace disease in the left lung base with effusion. This may represent atelectasis from the effusion or pneumonia D/ / Bandar Hill / Bandar Hill Interpreting Provider: Bandar Hill - Imaging EKG: image reviewed (78bpm, borderline LAD) Anesthesia Exam Vital Signs Temp Pulse Resp BP Pulse Ox 03/18/17 08:21 97.4 F L 75 16 115/66 95 03/18/17 04:25 97.7 F 80 17 111/69 93 03/17/17 23:33 97.8 F 105 16 92/55 93 03/17/17 22:34 18 95/64 03/17/17 22:03 107 16 91/42 94 03/17/17 21:18 113 16 93/49 98 03/17/17 19:33 113 16 100/50 94 03/17/17 18:25 98.0 F 116 18 97/66 93 Intake and Output 03/17/17 03/18/17 03/18/17 23:59 07:59 15:59 Intake Total 1999 / 1999 1000 / 1000 0 / 0 Output Total 150 / 150 400 / 400 250 / 250 Balance 1850 / 1850 600 / 600 -250 / -250 Intake: IV Fluids 1999 1000 / 1000 0.9 % Sodium Chloride , 1999 1000 / 1000 000 ML @ 80 mls/hr IVC . [id number] IDON Rx#: [id number] Oral 0 / 0 0 / 0 Output: Urine 150 / 150 400 / 400 250 / 250 Other: Meal NPO Percent of Meal Consumed 0% # Voids 1 Weight 54.431 kg 61.1 kg Patient Weight 03/18/17 23:59 Weight 61.1 kg Height: 5'1" Weight: 134# BMI = 26 NPO (# of Hours): MNOc - HEENT Pupil (Motor): Pupils equal, EOMI Mallampati: II Teeth: Normal (broken L-lower molar) Oral Opening: Greater than 3 - PASSENGER TIRE BUILDER LOC: Oriented PASSENGER TIRE BUILDER Motor: Normal RUE, Normal LUE, Normal RLE, Normal LLE, Normal Face PASSENGER TIRE BUILDER Sensory: Normal: RUE, LUE, RLE, LLE, Face - Cardiac Rhythm: Regular Murmur: None - Pulmonary Breath Sounds: bilateral Clear Respiratory Effort: Symmetrical Anesthesia Assess/Plan ASA Score: 3 (Stage 3 CKD, Sepsis this admission, Muscle tissue disorder/ Muscular dystrophy - sees Water Softener Service Supervisor) Modified Devika Scale for Level of Consciousness: Cooperative, oriented, and tranquil Anesthetic Plan: General Autologous Blood: Yes Monitoring Plan: Standard Monitors Recovery Plan: PACU Anes Supervising Prov Stmt: Pt seen/evaluated, R&B discussed, questions answered and consent obtained. Anna Ballard MD
--- NOTE | 2017-03-18 15:12 | Internal Med Progress Note ---
<Rhiannon Tee - Last Filed: 03/18/17 17:59> Date of Encounter: 03/18/17 Time of Encounter: 10:30 - Assessment and plan (1) Right ureteral calculus Current Visit: Yes Status: Acute Assessment and plan: Patient stated the pain has improved and she no longer has nausea and vomiting. She admits to pain in the right inguinal and RLQ still. CT abdomen and pelvis- revealed hydronephrosis and hydroureter on the right with a right distal ureter calcification measuring 7mm. Urology is taking her to OR today for cystoscopy and right ureteral stent placement. (2) Pyelonephritis, acute Current Visit: Yes Status: Acute Assessment and plan: Sepsis secondary to the obstructing calculus. Patient denies fever, chills, nausea, vomiting. Pain improving WBC 22.6 lactic acid improved 1.2 Blood cultures negative Plan: Continue Rocephin IV fluids (3) Acute kidney injury Current Visit: Yes Status: Acute Assessment and plan: Elevated creatinine at admission. Most likey due to obstructing calculus. Improving 1.37 Iv fluids and monitor renal function (4) Elevated troponin I level Current Visit: Yes Status: Acute Assessment and plan: Trending down. Now 1.37 (5) Chronic steroid use Current Visit: Yes Status: Acute Assessment and plan: Patient takes 5 mg prednisone daily and has been on a taper for roughly 6 weeks from 15 mg. 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 Absent: scleral icterus - Respiratory Respiratory exam: Present: CTAB. Absent: respiratory distress, stridor, wheezes - Cardiovascular Cardiovascular exam: Present: RRR, +S1, +S2. Absent: gallop - GI/Abdominal GI/Abdominal exam: Present: normal bowel sounds, soft, tenderness (right lower quadrant). Absent: guarding - Extremities Exam Extremities exam: Present: normal inspection. Absent: tenderness - Skin Skin exam: Present: dry, intact Internal Medicine: Result - Labs CBC & Chem 7: 03/18/17 00:55 03/18/17 00:55 Labs: Cardiac Enzymes 03/18/17 03/18/17 Range/Units 05:16 10:59 Troponin I 0.06 H* 0.04 H* (0-0.03) ng/mL Consult Discharge Plan - Plan Referrals: Belinda Cleaning RN [facility] C[facility] [Primary Care Provider] - 03/26/17 9:00 am (Web request ) <Faheem Ojeda - Last Filed: 03/18/17 20:01> Date of Encounter: 03/18/17 - Constitutional Vitals: Temp Pulse Resp BP Pulse Ox 97.6 F 73 17 104/62 96 03/18/17 19:56 03/18/17 19:56 03/18/17 19:56 03/18/17 19:56 03/18/17 19:56 Internal Medicine: Result - Labs CBC & Chem 7: 03/18/17 00:55 03/18/17 00:55 Labs: Cardiac Enzymes 03/18/17 03/18/17 Range/Units 05:16 10:59 Troponin I 0.06 H* 0.04 H* (0-0.03) ng/mL - Impressions Impressions Fluoroscopy 03/18/17 16:40 IMPRESSION: Intraprocedural fluoroscopic spot images as above. See separate procedure report for more information. D/ / Aravind Welsh MD / Aravind Welsh MD Interpreting Provider: Aravind Welsh MD - Attending Attestation I examined this patient and my medical decision-making was reviewed with the Resident Physician. I agree with the documented findings, disposition and treatment plan as described except to the extent set forth below. Urology input appreciated.
[2017-03-18] MEDS ORDERED: *HR* Midazolam HCl 2 MG/2 ML VIAL ONE (16:06)
[2017-03-18] MEDS ORDERED: *HR* FentaNYL (PF) 100 MCG/2 ML VIAL ONE (16:06)
[2017-03-18] MEDS ORDERED: *HR* Propofol 200 MG/20 ML VIAL IVP ONE (16:07)
[2017-03-18] MEDS ORDERED: Metoclopramide 10 MG/2 ML VIAL ONE (16:21)
[2017-03-18] MEDS ORDERED: Famotidine 20 MG/2 ML VIAL ONE (16:21)
--- NOTE | 2017-03-18 16:52 | Operative Note ---
Date of procedure: 03/18/17 Pre-op diagnosis: right distal ureteral stone with pyelonephritis Post-op diagnosis: same Procedure: Cystoscopy and right 6 x 26 cm ureteral stent placement Anesthesia: CHANEL Surgeon: Gino Choudhury Condition: stable Disposition: PACU Procedure in Detail: Patient was prepped and draped in normal sterile fashion. Timeout procedure performed. I then inserted the cystoscope into the patient's bladder. Bladder was drained and then refilled with saline. At this point I observed gross pus coming from the right ureteral orifice. I then placed a zip wire up the right ureteral orifice which was confirmed to be in the right renal pelvis using fluoroscopy. At this point I placed a 6 x 26 cm ureteral stent with good curl seen in the right kidney and in the bladder. Continued pus was seen draining from the right kidney. A Falcon catheter was placed at the end of the procedure which will be removed tomorrow.
[2017-03-18] MEDS ORDERED: *HR* HYDROmorphone (PF) 1 MG/ML SYRINGE IVP PRN (17:05)
[2017-03-18] MEDS ORDERED: *HR* Promethazine 25 MG/ML VIAL IVP PRN (17:05)
[2017-03-18] MEDS ORDERED: *HR* Labetalol 20 MG/4 ML SYRINGE IVP PRN (17:05)
[2017-03-18] MEDS ORDERED: Naloxone 0.4 MG/ML INJ IVP PRN (17:50)
[2017-03-18] MEDS ORDERED: Ondansetron 4 MG/2 ML VIAL IVP PRN (17:50)
[2017-03-18] MEDS: *HR* Morphine 2 MG/ML SYRINGE IVP PRN (19:43)
--- NOTE | 2017-03-18 20:05 | Electrocardiograph Report ---
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
--- NOTE | 2017-03-18 20:09 | Electrocardiograph Report ---
[address] [address] Test Date: 2017-03-18 Pat Name: Jayda Garcia Department: 112 Room: 2A12 Gender: F Digital Photo Printer: RICKEY : [id number] Requested By: Sony Gambino Order Number: [id number] Reading MD: Mac Sellers MD Measurements Intervals [place] Rate: 78 P: 25 [place]: 152 QRS: -22 QRSD: 73 T: -5 QT: 401 QTc: 434 Interpretive Statements SINUS RHYTHM BORDERLINE LEFT AXIS DEVIATION LOW QRS VOLTAGE IN PRECORDIAL LEADS Electronically Signed On 03-18-2017 20:08:02 EDT by Mac Sellers MD
[2017-03-19] MEDS ORDERED: *HR* Enoxaparin 30 MG/0.3 ML SYRINGE SQ SCH (06:00)
[2017-03-19] MEDS: 0.9 % Sodium Chloride 1,000 ML IVC SCH ×2 (06:28→21:07)
[2017-03-19] MEDS: Pantoprazole 40 MG VIAL IVP SCH (06:29)
[2017-03-19] MEDS: *HR* Enoxaparin 30 MG/0.3 ML SYRINGE SQ SCH (06:30)
[2017-03-19 06:42] LABS: Calcium 7.8 mg/dL (8.6-10.8)
[2017-03-19 07:00] LABS: Hematocrit 31.7 % (35.3-44.9); Hemoglobin 9.9 g/dL (11.5-15.4); Mean Corpuscular HGB Conc 31.2 g/dL (31.6-35.5); Mean Corpuscular Hemoglobin 28.7 pg (28.0-33.3); Mean Corpuscular Volume 91.9 fL (83.0-100.0); Mean Platelet Volume 11.5 fL (9.4-12.4); Platelet Count 111 K/mcL (140-400); Red Blood Count 3.45 M/mcL (3.82-4.97); Red Cell Distribution Width 14.7 % (11.5-14.5)
[2017-03-19 08:06] LABS: Lymphocytes # 2.3 K/mcL (0.6-4.6); Monocytes # 0.5 K/mcL (0.0-1.3)
[2017-03-19 08:07] LABS: Acinetobacter baumannii by PCR Not Detected (Not Detect); Enterococcus by PCR Not Detected (Not Detect); Staphylococcus aureus by PCR Not Detected (Not Detect); Streptococcus agalactiae(B)PCR Not Detected (Not Detect); Streptococcus by PCR Not Detected (Not Detect); Streptococcus pneumoniae PCR Not Detected (Not Detect); Streptococcus pyogenes (A) PCR Not Detected (Not Detect); blaKPC Carbapenem-Resist Gene Not Detected (Not Detect); mecA Methicillin-Resist Gene Not Detected (Not Detect); vanA/B Vancomycin-Resist Genes Not Detected (Not Detect)
[2017-03-19 08:08] LABS: Candida albicans by PCR Not Detected (Not Detect); Candida glabrata by PCR Not Detected (Not Detect); Candida krusei by PCR Not Detected (Not Detect); Candida parapsilosis by PCR Not Detected (Not Detect); Candida tropicalis by PCR Not Detected (Not Detect); Escherichia coli by PCR Not Detected (Not Detect); Klebsiella oxytoca by PCR Not Detected (Not Detect); Klebsiella pneumoniae by PCR ***DETECTED*** (Not Detect); Pseudomonas aeruginosa by PCR Not Detected (Not Detect); Serratia marcescens by PCR Not Detected (Not Detect)
[2017-03-19 08:08] LABS: Platelet Estimate Normal (Normal)
[2017-03-19] MEDS: Propranolol LA (24 HR) 60 MG CAP.SA.24H PO SCH (08:15)
[2017-03-19] MEDS: Aspirin Enteric Coated 81 MG Tablet PO SCH (08:15)
[2017-03-19] MEDS: predniSONE 5 MG TABLET PO SCH (08:15)
--- NOTE | 2017-03-19 09:56 | Urology Progress Note ---
Date of Encounter: 03/19/17 Time of Encounter: 09:55 - Assessment and Plan (1) Right ureteral calculus Current Visit: Yes Status: Acute Assessment and plan: sp stenting. (2) Pyelonephritis, acute Current Visit: Yes Status: Acute Assessment and plan: continue abx until cultures returned. continue catheter to promote drainage. Progress Note Narrative: POD 1 from cysto and ureteral stent placement. Patient states that she feels better this am. good uop this morning. Objective Initial Vital Signs Temp Pulse Resp BP Pulse Ox 98.0 F 116 18 97/66 93 03/17/17 18:25 03/17/17 18:25 03/17/17 18:25 03/17/17 18:25 03/17/17 18:25 - General physical appearance Present: well developed - Abdomen Present: soft - Labs 03/19/17 06:10 03/19/17 06:10 Diabetes panel 03/19/17 Range/Units 06:10 Sodium 141 (136-145) mEq/L Potassium 5.0 H (3.5-4.5) mEq/L Chloride 119 H (98-109) mEq/L Carbon Dioxide 15 L (19-29) mEq/L BUN 40 H D (7-20) mg/dL Creatinine 1.50 H (0.57-1.11) mg/dL Glucose 88 (70-99) mg/dL Calcium 7.8 L (8.6-10.8) mg/dL Calcium panel 03/19/17 Range/Units 06:10 Calcium 7.8 L (8.6-10.8) mg/dL Pituitary panel 03/19/17 Range/Units 06:10 Sodium 141 (136-145) mEq/L Potassium 5.0 H (3.5-4.5) mEq/L Chloride 119 H (98-109) mEq/L Carbon Dioxide 15 L (19-29) mEq/L BUN 40 H D (7-20) mg/dL Creatinine 1.50 H (0.57-1.11) mg/dL Glucose 88 (70-99) mg/dL Calcium 7.8 L (8.6-10.8) mg/dL Adrenal panel 03/19/17 Range/Units 06:10 Sodium 141 (136-145) mEq/L Potassium 5.0 H (3.5-4.5) mEq/L Chloride 119 H (98-109) mEq/L Carbon Dioxide 15 L (19-29) mEq/L BUN 40 H D (7-20) mg/dL Creatinine 1.50 H (0.57-1.11) mg/dL Glucose 88 (70-99) mg/dL Calcium 7.8 L (8.6-10.8) mg/dL Consult Discharge Plan - Plan Referrals: Belinda Cleaning, ANGEL [Primary Care Provider] - 03/26/17 9:00 am (Web request )
--- NOTE | 2017-03-19 11:57 | Internal Med Progress Note ---
<Rhiannon Tee - Last Filed: 03/19/17 17:21> Date of Encounter: 03/19/17 Time of Encounter: 11:00 - Assessment and plan (1) Right ureteral calculus Current Visit: Yes Status: Acute Assessment and plan: -s/p: right ureteral stent placement -Patient stated she no longer has nausea and vomiting and right lower quadrant pain -CT abdomen and pelvis- revealed hydronephrosis and hydroureter on the right with a right distal ureter calcification measuring 7mm. -urology following (2) Pyelonephritis, acute Current Visit: Yes Status: Acute Assessment and plan: Sepsis secondary to the obstructing calculus. Patient denies fever, chills, nausea, vomiting. Pain improving WBC 22.6 lactic acid improved 1.2 Plan: Continue Rocephin Blood cultures are pending IV fluids (3) Acute kidney injury Current Visit: Yes Status: Acute Assessment and plan: Elevated creatinine at admission Most likey due to obstructing calculus. Improving and is 1.5 Iv fluids Avoid nephrotoxic medications monitor renal function (4) Elevated troponin I level Current Visit: Yes Status: Acute Assessment and plan: Trending down. Now 0.04 Denies chest pain (5) Chronic steroid use Current Visit: Yes Status: Acute Assessment and plan: Patient takes 5 mg prednisone daily and has been on a taper for roughly 6 weeks from 15 mg. Will continue treatment here - Subjective Interval history: Patient is comfortably sitting up in a chair talking with her daughter. Patient admits that her tenderness of the quadrant is gone. She denies chest pains, dyspnea, nausea, vomiting, fever, chills she only complains of neck and back stiffness due to the uncomfortable bed. - Constitutional Vitals: Temp Pulse Resp BP Pulse Ox 97.6 F 82 18 137/83 96 03/19/17 11:07 03/19/17 11:07 03/19/17 11:07 03/19/17 11:07 03/19/17 11:07 General appearance: Present: A&O X 3, pleasant, no acute distress Exam: Gen.: Vitals noted. No acute distress. AAOx3 HEENT:, oropharynx clear, Normocephalic, atraumatic Neck: Supple. No adenopathy. Cardiac: RRR, no murmur, +S1/S2 Pulmonary: CTA bilaterally, no wheezes, rales or rhonchi, equal chest expansion Abdomen: soft, nontender, Bowel sounds noted, no guarding Back: Nontender throughout. MSK: ROM intact, no joint swelling noted Extremities: no BLE edema, nontender calf, no cyanosis or clubbing Psych: Appropriate mood and behavior Internal Medicine: Result - Labs CBC & Chem 7: 03/19/17 06:10 03/19/17 06:10 Labs: Short CBC 03/19/17 Range/Units 06:10 WBC 22.6 H (4.3-11.1) K/mcL Hgb 9.9 L (11.5-15.4) g/dL Hct 31.7 L (35.3-44.9) % Plt Count 111 L (140-400) K/mcL Neutrophils # 19.0 H (1.6-8.9) K/mcL BMP 03/19/17 06:10 Sodium 141 Potassium 5.0 H Chloride 119 H Carbon Dioxide 15 L BUN 40 H D Creatinine 1.50 H Glucose 88 Calcium 7.8 L - Impressions Impressions Fluoroscopy 03/18/17 16:40 IMPRESSION: Intraprocedural fluoroscopic spot images as above. See separate procedure report for more information. D/ / Aravind Welsh MD / Aravind Welsh MD Interpreting Provider: Aravind Welsh MD Consult Discharge Plan - Plan Referrals: Belinda Cleaning, RN COMPLIANCE [Primary Care Provider] - 03/26/17 9:00 am (Web request ) <Faheem Ojeda P - Last Filed: 03/19/17 18:14> Date of Encounter: 03/19/17 - Constitutional Vitals: Temp Pulse Resp BP Pulse Ox 98.1 F 68 16 150/81 97 03/19/17 16:10 03/19/17 16:10 03/19/17 16:10 03/19/17 16:10 03/19/17 16:10 Internal Medicine: Result - Labs CBC & Chem 7: 03/19/17 06:10 03/19/17 06:10 Labs: Short CBC 03/19/17 Range/Units 06:10 WBC 22.6 H (4.3-11.1) K/mcL Hgb 9.9 L (11.5-15.4) g/dL Hct 31.7 L (35.3-44.9) % Plt Count 111 L (140-400) K/mcL Neutrophils # 19.0 H (1.6-8.9) K/mcL BMP 03/19/17 06:10 Sodium 141 Potassium 5.0 H Chloride 119 H Carbon Dioxide 15 L BUN 40 H D Creatinine 1.50 H Glucose 88 Calcium 7.8 L - Attending Attestation I examined this patient and my medical decision-making was reviewed with the Resident Physician. I agree with the documented findings, disposition and treatment plan as described except to the extent set forth below. Gram-negative bacteremia. Klebsiella pneumoniae is organism which was identified. Urine culture is positive for gram-negative rods. Presently on ceftriaxone: Day 2 White count is still persistently elevated to 22,000. Patient is on prednisone 5 mg every day. If the trend continues tomorrow the same way, we will scan her abdomen to rule out perinephric abscess/pyelonephritis
[2017-03-19] MEDS: *HR* Morphine 2 MG/ML SYRINGE IVP PRN ×2 (12:44→18:56)
[2017-03-20 05:25] LABS: Calcium 8.2 mg/dL (8.6-10.8); Potassium 4.5 mEq/L (3.5-4.5)
[2017-03-20] MEDS: Pantoprazole 40 MG VIAL IVP SCH (05:43)
[2017-03-20] MEDS: *HR* Enoxaparin 30 MG/0.3 ML SYRINGE SQ SCH (05:43)
[2017-03-20 06:26] LABS: Basophils % 0.1 %; Eosinophils % 0.2 %; Hematocrit 30.4 % (35.3-44.9); Hemoglobin 9.5 g/dL (11.5-15.4); Immature Platelets 5.3 % (1.1-6.1); Lymphocytes % 7.8 %; Mean Corpuscular HGB Conc 31.3 g/dL (31.6-35.5); Mean Corpuscular Hemoglobin 28.6 pg (28.0-33.3); Mean Platelet Volume 11.1 fL (9.4-12.4); Monocytes # 0.8 K/mcL (0.0-1.3); Monocytes % 6.1 %; Neutrophils # 10.9 K/mcL (1.6-8.9); Platelet Count 127 K/mcL (140-400); Red Blood Count 3.32 M/mcL (3.82-4.97); Red Cell Distribution Width 14.6 % (11.5-14.5); Segmented Neutrophils % 84.8 %
[2017-03-20 06:34] LABS: Mean Corpuscular Volume 91.6 fL (83.0-100.0)
--- NOTE | 2017-03-20 07:16 | Urology Progress Note ---
Date of Encounter: 03/20/17 Time of Encounter: 07:14 - Assessment and Plan (1) Right ureteral calculus Current Visit: Yes Status: Acute Assessment and plan: sp stenting will schedule patient for return to the OR in 2-3 weeks. no f/u in office needed (2) Pyelonephritis, acute Current Visit: Yes Status: Acute Assessment and plan: patient will need culture specific abx for 2 more weeks. cipro would work. Progress Note Narrative: patient seen. feeling slowely better. cultures returned. wbc improved. good uop. Objective Initial Vital Signs Temp Pulse Resp BP Pulse Ox 98.0 F 116 18 97/66 93 03/17/17 18:25 03/17/17 18:25 03/17/17 18:25 03/17/17 18:25 03/17/17 18:25 - General physical appearance Present: well developed - Abdomen Present: soft - Labs 03/20/17 06:06 03/20/17 04:39 Diabetes panel 03/20/17 Range/Units 04:39 Sodium 141 (136-145) mEq/L Potassium 4.5 (3.5-4.5) mEq/L Chloride 119 H (98-109) mEq/L Carbon Dioxide 15 L (19-29) mEq/L BUN 34 H (7-20) mg/dL Creatinine 1.44 H (0.57-1.11) mg/dL Glucose 67 L (70-99) mg/dL Calcium 8.2 L (8.6-10.8) mg/dL Calcium panel 03/20/17 Range/Units 04:39 Calcium 8.2 L (8.6-10.8) mg/dL Pituitary panel 03/20/17 Range/Units 04:39 Sodium 141 (136-145) mEq/L Potassium 4.5 (3.5-4.5) mEq/L Chloride 119 H (98-109) mEq/L Carbon Dioxide 15 L (19-29) mEq/L BUN 34 H (7-20) mg/dL Creatinine 1.44 H (0.57-1.11) mg/dL Glucose 67 L (70-99) mg/dL Calcium 8.2 L (8.6-10.8) mg/dL Adrenal panel 03/20/17 Range/Units 04:39 Sodium 141 (136-145) mEq/L Potassium 4.5 (3.5-4.5) mEq/L Chloride 119 H (98-109) mEq/L Carbon Dioxide 15 L (19-29) mEq/L BUN 34 H (7-20) mg/dL Creatinine 1.44 H (0.57-1.11) mg/dL Glucose 67 L (70-99) mg/dL Calcium 8.2 L (8.6-10.8) mg/dL - VTE Documentation of Mechanical Device: Venous foot pump, device Consult Discharge Plan - Plan Referrals: Belinda Cleaning, ANGEL [Primary Care Provider] - 03/26/17 9:00 am (Web request )
[2017-03-20] MEDS: Aspirin Enteric Coated 81 MG Tablet PO SCH (08:58)
[2017-03-20] MEDS: *HR* Morphine 2 MG/ML SYRINGE IVP PRN (08:58)
[2017-03-20] MEDS: Propranolol LA (24 HR) 60 MG CAP.SA.24H PO SCH (08:58)
[2017-03-20] MEDS: predniSONE 5 MG TABLET PO SCH (08:59)
[2017-03-20] MEDS: 0.9 % Sodium Chloride 1,000 ML IVC SCH (11:45)
[2017-03-20] MEDS ORDERED: traMADol 50 MG TABLET PO ONE (12:04)
--- NOTE | 2017-03-20 14:22 | Internal Med Progress Note ---
Addendum entered and electronically signed by Rhiannon Tee DO 03/20/17 15:22: Patient is on day 4 of 5 for Rocephin. Original Note: <Rhiannon Tee - Last Filed: 03/20/17 14:58> Date of Encounter: 03/20/17 Time of Encounter: 10:30 - Assessment and plan (1) Bacteremia Current Visit: Yes Status: Acute Assessment and plan: -Bacteremia due to calculus in right ureter. -s/p: right ureteral stent placement day 3 -Urine Cultures: klebsiella -Blood Culture: Klebsiella -WBC is improving- 12.9 -Patient is afebrile and does not complain of abdominal pain -Will continue IV Rocephin for 5 days total. Day 2 of 5 -Sensitive to Bactrim- will discharge with PO Bactrim for 9 days (2) Right ureteral calculus Current Visit: Yes Status: Acute Assessment and plan: -s/p: right ureteral stent placement day 3 -patient is afebrile, creatinine is improving 1.44 -Patient stated she no longer has nausea and vomiting and right lower quadrant pain -CT abdomen and pelvis- revealed hydronephrosis and hydroureter on the right with a right distal ureter calcification measuring 7mm. -urology following -Patient will be scheduled by Urology office to return to OR in 2-3. No F/u in office. (3) Pyelonephritis, acute Current Visit: Yes Status: Acute Assessment and plan: Sepsis secondary to the obstructing calculus. Patient denies right lower quadrant pain, fever, chills, nausea, vomiting. WBC 12.9 Creatinine improving 1.44 lactic acid improved 1.2 Plan: Continue Rocephin (see above for abx schedule) IV fluids (4) Acute kidney injury Current Visit: Yes Status: Acute Assessment and plan: Elevated creatinine at admission Improving and is 1.44 Most likey due to obstructing calculus. Iv fluids Avoid nephrotoxic medications monitor renal function (5) Elevated troponin I level Current Visit: Yes Status: Acute Assessment and plan: Trending down. Now 0.04 Denies chest pain (6) Chronic steroid use Current Visit: Yes Status: Acute Assessment and plan: Patient takes 5 mg prednisone daily and has been on a taper for roughly 6 weeks from 15 mg. Will continue treatment here - Subjective Interval history: Patient is comfortably sitting up in bed. Patient admits that her tenderness of the right lower quadrant is gone. She denies chest pain, dyspnea, nausea, vomiting, fever, chills. She has had her benitez catheter taken out this morning and has not urinated yet. She only complains of a headache that is resolving. - Constitutional Vitals: Temp Pulse Resp BP Pulse Ox 97.3 F L 83 19 146/70 91 03/20/17 11:43 03/20/17 11:43 03/20/17 11:43 03/20/17 11:43 03/20/17 11:43 General appearance: Present: A&O X 3, pleasant, no acute distress Exam: Gen.: Vitals noted. No acute distress. AAOx3 HEENT: PERRL/EOMI, oropharynx clear, Normocephalic, atraumatic Neck: Supple. No adenopathy. Cardiac: RRR, no murmur, +S1/S2 Pulmonary: CTA bilaterally, no wheezes, rales or rhonchi, equal chest expansion Abdomen: soft, nontender, Bowel sounds noted, no guarding Back: Nontender throughout. Extremities: no BLE edema, nontender calf, no cyanosis or clubbing Neuro: A&Ox3, moves all extremities, no focal deficits Psych: Appropriate mood and behavior Internal Medicine: Result - Labs CBC & Chem 7: 03/20/17 06:06 03/20/17 04:39 Labs: Short CBC 03/20/17 Range/Units 06:06 WBC 12.9 H (4.3-11.1) K/mcL Hgb 9.5 L (11.5-15.4) g/dL Hct 30.4 L (35.3-44.9) % Plt Count 127 L (140-400) K/mcL Neutrophils # 10.9 H (1.6-8.9) K/mcL BMP 03/20/17 04:39 Sodium 141 Potassium 4.5 Chloride 119 H Carbon Dioxide 15 L BUN 34 H Creatinine 1.44 H Glucose 67 L Calcium 8.2 L - VTE Documentation of Mechanical Device: Venous foot pump, device Consult Discharge Plan - Plan Referrals: Belinda Cleaning, DOUGHNUT MACHINE OPERATOR [Primary Care Provider] - 03/26/17 9:00 am () <Faheem Ojeda - Last Filed: 03/20/17 17:59> Date of Encounter: 03/20/17 - Constitutional Vitals: Temp Pulse Resp BP Pulse Ox 97.3 F L 83 19 146/70 91 03/20/17 11:43 03/20/17 11:43 03/20/17 11:43 03/20/17 11:43 03/20/17 11:43 Internal Medicine: Result - Labs CBC & Chem 7: 03/20/17 06:06 03/20/17 04:39 Labs: Short CBC 03/20/17 Range/Units 06:06 WBC 12.9 H (4.3-11.1) K/mcL Hgb 9.5 L (11.5-15.4) g/dL Hct 30.4 L (35.3-44.9) % Plt Count 127 L (140-400) K/mcL Neutrophils # 10.9 H (1.6-8.9) K/mcL BMP 03/20/17 04:39 Sodium 141 Potassium 4.5 Chloride 119 H Carbon Dioxide 15 L BUN 34 H Creatinine 1.44 H Glucose 67 L Calcium 8.2 L - Attending Attestation I examined this patient and my medical decision-making was reviewed with the Resident Physician. I agree with the documented findings, disposition and treatment plan as described except to the extent set forth below. kleb pneumoniae bacteremia with source:pansensetive total duration of IV abx 5 days: ceftriaxone renally adjusted bactrim after that for total of 14 days.
[2017-03-21] MEDS: *HR* Enoxaparin 30 MG/0.3 ML SYRINGE SQ SCH (05:21)
[2017-03-21 06:22] LABS: Basophils % 0.1 %; Calcium 8.7 mg/dL (8.6-10.8); Eosinophils # 0.1 K/mcL (0.0-0.6); Eosinophils % 0.7 %; Hematocrit 31.5 % (35.3-44.9); Hemoglobin 9.4 g/dL (11.5-15.4); Immature Granulocytes % 1.2 % (0-4); Lymphocytes # 1.3 K/mcL (0.6-4.6); Mean Corpuscular HGB Conc 29.8 g/dL (31.6-35.5); Mean Corpuscular Hemoglobin 28.1 pg (28.0-33.3); Mean Platelet Volume 11.1 fL (9.4-12.4); Monocytes # 0.8 K/mcL (0.0-1.3); Monocytes % 7.4 %; Neutrophils # 8.8 K/mcL (1.6-8.9); Platelet Count 134 K/mcL (140-400); Potassium 3.7 mEq/L (3.5-4.5); Red Blood Count 3.35 M/mcL (3.82-4.97); Red Cell Distribution Width 14.4 % (11.5-14.5); Segmented Neutrophils % 78.6 %
[2017-03-21] MEDS: Aspirin Enteric Coated 81 MG Tablet PO SCH (08:27)
[2017-03-21] MEDS: Propranolol LA (24 HR) 60 MG CAP.SA.24H PO SCH (08:28)
[2017-03-21] MEDS: predniSONE 5 MG TABLET PO SCH (08:28)
--- NOTE | 2017-03-21 09:43 | Internal Med Progress Note ---
<Rhiannon Tee - Last Filed: 03/21/17 13:44> Date of Encounter: 03/21/17 Time of Encounter: 09:30 - Assessment and plan (1) Bacteremia Current Visit: Yes Status: Acute Assessment and plan: -Bacteremia due to calculus in right ureter -s/p: right ureteral stent placement day 4 -Urine Cultures: klebsiella -Blood Culture: Klebsiella -WBC is improving- 11.2 -Patient is afebrile and does not complain of abdominal pain -Will continue IV Rocephin. Day 5 -Will repeat blood cultures -will check ESR and CRP -Sensitive to Bactrim- will discharge with PO Bactrim for 9 days (2) Right ureteral calculus Current Visit: Yes Status: Acute Assessment and plan: -s/p: right ureteral stent placement day 4 -patient is afebrile, creatinine is improving 1.49 -patient has been able to urinate without discomfort, burning, hematuria -Patient stated she no longer has nausea and vomiting or right lower quadrant pain -CT abdomen and pelvis- revealed hydronephrosis and hydroureter on the right with a right distal ureter calcification measuring 7mm. -urology following -Patient will be scheduled by Urology office to return to OR in 2-3. No F/u in office. (3) Pyelonephritis, acute Current Visit: Yes Status: Acute Assessment and plan: Sepsis secondary to the obstructing calculus. Patient denies right lower quadrant pain, fever, chills, nausea, vomiting. WBC 11.2 Creatinine improving 1.49 lactic acid improved 1.2 Plan: Continue Rocephin (see above for abx schedule) IV fluids (4) Acute kidney injury Current Visit: Yes Status: Acute Assessment and plan: Elevated creatinine at admission Improving and is 1.49 Most likey due to obstructing calculus. Iv fluids Avoid nephrotoxic medications monitor renal function (5) Elevated troponin I level Current Visit: Yes Status: Acute Assessment and plan: Trending down. Now 0.04 Denies chest pain (6) Chronic steroid use Current Visit: Yes Status: Acute Assessment and plan: Patient takes 5 mg prednisone daily and has been on a taper for roughly 6 weeks from 15 mg. Will continue treatment here - Subjective Interval history: Patient is comfortably sitting up in a chair watching television She denies abdominal pain, chest pain, dyspnea, nausea, vomiting, fever, chills. She is able to urinate without discomfort, burning, hematuria She denies a bowel movement since Friday but has passed gas Her only complaint is that she has a fever blister which are common to her. - Constitutional Vitals: Temp Pulse Resp BP Pulse Ox 98.2 F 62 18 180/81 94 03/21/17 07:05 03/21/17 07:05 03/21/17 07:05 03/21/17 07:05 03/21/17 07:05 General appearance: Present: A&O X 3, pleasant, no acute distress Exam: Gen.: Vitals noted. No acute distress. AAOx3 HEENT: PERRL/EOMI, oropharynx clear, Normocephalic, atraumatic Neck: Supple. No adenopathy. Cardiac: RRR, no murmur, +S1/S2 Pulmonary: CTA bilaterally, no wheezes, rales or rhonchi, equal chest expansion Abdomen: soft, nontender, Bowel sounds noted, no guarding Back: Nontender throughout Extremities: no BLE edema, nontender calf, no cyanosis or clubbing Neuro: A&Ox3, moves all extremities, no focal deficits Psych: Appropriate mood and behavior Internal Medicine: Result - Labs CBC & Chem 7: 03/21/17 05:44 03/21/17 05:44 Labs: Short CBC 03/21/17 Range/Units 05:44 WBC 11.2 H (4.3-11.1) K/mcL Hgb 9.4 L (11.5-15.4) g/dL Hct 31.5 L (35.3-44.9) % Plt Count 134 L (140-400) K/mcL Neutrophils # 8.8 (1.6-8.9) K/mcL BMP 03/21/17 05:44 Sodium 141 Potassium 3.7 Chloride 119 H Carbon Dioxide 15 L BUN 28 H Creatinine 1.49 H Glucose 79 Calcium 8.7 - VTE Documentation of Mechanical Device: Venous foot pump, device Consult Discharge Plan - Plan Referrals: Belinda Cleaning, MINE TECHNICIAN [Primary Care Provider] - 03/26/17 9:00 am () <Faheem Ojeda - Last Filed: 03/21/17 14:56> Date of Encounter: 03/21/17 - Constitutional Vitals: Temp Pulse Resp BP Pulse Ox 98.1 F 58 18 168/84 95 03/21/17 11:36 03/21/17 11:36 03/21/17 11:36 03/21/17 11:36 03/21/17 11:36 Internal Medicine: Result - Labs CBC & Chem 7: 03/21/17 05:44 03/21/17 05:44 Labs: Short CBC 03/21/17 Range/Units 05:44 WBC 11.2 H (4.3-11.1) K/mcL Hgb 9.4 L (11.5-15.4) g/dL Hct 31.5 L (35.3-44.9) % Plt Count 134 L (140-400) K/mcL Neutrophils # 8.8 (1.6-8.9) K/mcL BMP 03/21/17 05:44 Sodium 141 Potassium 3.7 Chloride 119 H Carbon Dioxide 15 L BUN 28 H Creatinine 1.49 H Glucose 79 Calcium 8.7 - Attending Attestation I examined this patient and my medical decision-making was reviewed with the Resident Physician. I agree with the documented findings, disposition and treatment plan as described except to the extent set forth below. home soon.
[2017-03-21] MEDS: amLODIPine 5 MG TABLET PO SCH (18:23)
[2017-03-22] MEDS: *HR* Enoxaparin 30 MG/0.3 ML SYRINGE SQ SCH (05:55)
[2017-03-22 06:19] LABS: Basophils % 0.3 %; Eosinophils # 0.2 K/mcL (0.0-0.6); Eosinophils % 1.7 %; Hematocrit 34.3 % (35.3-44.9); Immature Granulocytes % 1.6 % (0-4); Lymphocytes # 1.5 K/mcL (0.6-4.6); Lymphocytes % 10.8 %; Mean Corpuscular HGB Conc 32.1 g/dL (31.6-35.5); Mean Corpuscular Hemoglobin 29.3 pg (28.0-33.3); Mean Corpuscular Volume 91.2 fL (83.0-100.0); Mean Platelet Volume 10.7 fL (9.4-12.4); Monocytes # 1.3 K/mcL (0.0-1.3); Monocytes % 9.1 %; Neutrophils # 10.5 K/mcL (1.6-8.9); Platelet Count 180 K/mcL (140-400); Red Blood Count 3.76 M/mcL (3.82-4.97); Red Cell Distribution Width 14.2 % (11.5-14.5); Segmented Neutrophils % 76.5 %
[2017-03-22] MEDS ORDERED: traMADol 50 MG TABLET PO ONE (06:23)
[2017-03-22 06:34] LABS: Calcium 9.8 mg/dL (8.6-10.8); Magnesium 1.5 mg/dL (1.6-2.6); Potassium 3.4 mEq/L (3.5-4.5)
[2017-03-22] MEDS: predniSONE 5 MG TABLET PO SCH (08:09)
[2017-03-22] MEDS: Aspirin Enteric Coated 81 MG Tablet PO SCH (08:09)
[2017-03-22] MEDS: Propranolol LA (24 HR) 60 MG CAP.SA.24H PO SCH (08:09)
[2017-03-22] MEDS: amLODIPine 5 MG TABLET PO SCH (08:09)
--- NOTE | 2017-03-22 09:37 | Internal Med Progress Note ---
<Rhiannon Tee - Last Filed: 03/22/17 09:34> Date of Encounter: 03/22/17 Time of Encounter: 08:15 - Assessment and plan (1) Bacteremia Current Visit: Yes Status: Acute Assessment and plan: -Bacteremia due to calculus in right ureter -s/p: right ureteral stent placement day 4 -Urine Cultures: klebsiella -Blood Culture: Klebsiella -WBC is improving- 13.8 -ESR 68 CRP 68 -Patient is afebrile and does not complain of abdominal pain Plan -Will continue IV Rocephin. Day 6 -Repeat blood cultures pending -Sensitive to Bactrim- will discharge with PO Bactrim (2) Right ureteral calculus Current Visit: Yes Status: Acute Assessment and plan: -s/p: right ureteral stent placement day 5 -patient is afebrile, creatinine is improving 1.22 -patient has been able to urinate without discomfort, burning, hematuria -Patient stated she no longer has nausea and vomiting or right lower quadrant pain -CT abdomen and pelvis- revealed hydronephrosis and hydroureter on the right with a right distal ureter calcification measuring 7mm. Plan: -urology following -Patient will be scheduled by Urology office to return to OR in 2-3. No F/u in office. (3) Pyelonephritis, acute Current Visit: Yes Status: Acute Assessment and plan: Sepsis secondary to the obstructing calculus. Patient denies right lower quadrant pain, fever, chills, nausea, vomiting. WBC 13.8 Creatinine improving 1.22 Plan: Continue Rocephin (see above for abx schedule) (4) Acute kidney injury Current Visit: Yes Status: Acute Assessment and plan: Elevated creatinine at admission Improving and is 1.22 Most likey due to obstructing calculus. Plan: -IV fluids D/C due to increase in BP -Avoid nephrotoxic medications -monitor renal function -Patient is to follow up with nephrology- Dr. Harris outpatient (5) Elevated troponin I level Current Visit: Yes Status: Acute Assessment and plan: Trending down. Denies chest pain (6) Chronic steroid use Current Visit: Yes Status: Acute Assessment and plan: Patient takes 5 mg prednisone daily and has been on a taper for roughly 6 weeks from 15 mg. Will continue treatment here (7) DVT prophylaxis Current Visit: Yes Status: Acute Assessment and plan: Patient on Lovenox - Subjective Interval history: Patient is comfortably sitting up in bed watching television She denies abdominal pain, chest pain, dyspnea, nausea, vomiting, fever, chills. She is able to urinate without discomfort, burning, hematuria She stated she had a bowel movement last night Her only complaint is that she has a fever blister and headache which are common to her - Constitutional Vitals: Temp Pulse Resp BP Pulse Ox 98.1 F 82 16 152/82 96 03/22/17 08:29 03/22/17 08:29 03/22/17 08:29 03/22/17 08:29 03/22/17 08:29 General appearance: Present: A&O X 3, pleasant, no acute distress Exam: Gen.: Vitals noted. No acute distress. AAOx3 HEENT: PERRL/EOMI, oropharynx clear, Normocephalic, atraumatic Neck: Supple. No adenopathy. Cardiac: RRR, no murmur, +S1/S2 Pulmonary: CTA bilaterally, no wheezes, rales or rhonchi, equal chest expansion Abdomen: soft, nontender, Bowel sounds noted, no guarding Back: Nontender throughout. Extremities: no BLE edema, nontender calf, no cyanosis or clubbing Neuro: A&Ox3, moves all extremities, no focal deficits Psych: Appropriate mood and behavior Internal Medicine: Result - Labs CBC & Chem 7: 03/22/17 06:09 03/22/17 06:09 Labs: Short CBC 03/22/17 Range/Units 06:09 WBC 13.8 H (4.3-11.1) K/mcL Hgb 11.0 L D (11.5-15.4) g/dL Hct 34.3 L (35.3-44.9) % Plt Count 180 (140-400) K/mcL Neutrophils # 10.5 H (1.6-8.9) K/mcL BMP 03/22/17 06:09 Sodium 141 Potassium 3.4 L Chloride 116 H Carbon Dioxide 17 L BUN 26 H Creatinine 1.22 H Glucose 75 Calcium 9.8 - VTE Documentation of Mechanical Device: Venous foot pump, device Consult Discharge Plan - Plan Referrals: Belinda Cleaning, PORTAL ARCHITECT [Primary Care Provider] - 03/26/17 9:00 am () <Lynette,Faheem P - Last Filed: 03/22/17 13:09> Date of Encounter: 03/22/17 - Constitutional Vitals: Temp Pulse Resp BP Pulse Ox 97.9 F 77 17 167/86 95 03/22/17 10:55 03/22/17 10:55 03/22/17 10:55 03/22/17 10:55 03/22/17 10:55 Internal Medicine: Result - Labs CBC & Chem 7: 03/22/17 06:09 03/22/17 06:09 Labs: Short CBC 03/22/17 Range/Units 06:09 WBC 13.8 H (4.3-11.1) K/mcL Hgb 11.0 L D (11.5-15.4) g/dL Hct 34.3 L (35.3-44.9) % Plt Count 180 (140-400) K/mcL Neutrophils # 10.5 H (1.6-8.9) K/mcL BMP 03/22/17 06:09 Sodium 141 Potassium 3.4 L Chloride 116 H Carbon Dioxide 17 L BUN 26 H Creatinine 1.22 H Glucose 75 Calcium 9.8 - Attending Attestation I examined this patient and my medical decision-making was reviewed with the Resident Physician. I agree with the documented findings, disposition and treatment plan as described except to the extent set forth below. D5 of urinary tract stent placement. Basics of IV antibiotics. The Pneumonia Bacteremia: Pansensitive. Plan: -We Will Continue IV Antibiotics for 1 Day. -Spoke with patient's family law attorney. -Patient's family law attorney prefers to send patient home on oral ciprofloxacin. We will follow the recommendations from nephrology
[2017-03-22] MEDS ORDERED: Magic Mouthwash 10 ML UD Cup PO PRN (09:48)
[2017-03-22] MEDS: Acetaminophen 325 MG TABLET PO PRN (17:13)
[2017-03-23 01:24] LABS: Basophils % 0.3 %; Eosinophils # 0.3 K/mcL (0.0-0.6); Eosinophils % 1.7 %; Hematocrit 33.1 % (35.3-44.9); Hemoglobin 10.3 g/dL (11.5-15.4); Immature Granulocytes % 2.7 % (0-4); Lymphocytes % 13.6 %; Mean Corpuscular HGB Conc 31.1 g/dL (31.6-35.5); Mean Corpuscular Hemoglobin 27.8 pg (28.0-33.3); Mean Corpuscular Volume 89.5 fL (83.0-100.0); Mean Platelet Volume 10.6 fL (9.4-12.4); Monocytes # 1.3 K/mcL (0.0-1.3); Monocytes % 8.4 %; Neutrophils # 10.9 K/mcL (1.6-8.9); Platelet Count 202 K/mcL (140-400); Segmented Neutrophils % 73.3 %
[2017-03-23 01:35] LABS: Calcium 9.4 mg/dL (8.6-10.8); Potassium 3.5 mEq/L (3.5-4.5)
[2017-03-23] MEDS: *HR* Enoxaparin 30 MG/0.3 ML SYRINGE SQ SCH (06:57)
[2017-03-23] MEDS: Acetaminophen 325 MG TABLET PO PRN (08:31)
[2017-03-23] MEDS: Aspirin Enteric Coated 81 MG Tablet PO SCH (08:31)
[2017-03-23] MEDS: Propranolol LA (24 HR) 60 MG CAP.SA.24H PO SCH (08:32)
[2017-03-23] MEDS: predniSONE 5 MG TABLET PO SCH (08:32)
[2017-03-23] MEDS ORDERED: amLODIPine 5 MG TABLET PO SCH (09:00)
--- NOTE | 2017-03-23 11:04 | Internal Med Progress Note ---
<Rhiannon Tee - Last Filed: 03/23/17 12:14> Date of Encounter: 03/23/17 Time of Encounter: 08:15 - Assessment and plan (1) Bacteremia Status: Acute Assessment and plan: -Bacteremia due to calculus in right ureter -s/p: right ureteral stent placement day 4 -Urine Cultures: klebsiella -Blood Culture: Klebsiella -WBC is improving- 14.9 -Patient is afebrile and does not complain of abdominal pain -stable -Repeat blood cultures preliminary report do not show growth Plan -Will continue IV Rocephin. Day 7 -Sensitive to Bactrim- will discharge with Cipro 500 BID (for total 14 day abx that includes hospital abx) -discharged tomorrow (2) Right ureteral calculus Status: Acute Assessment and plan: -s/p: right ureteral stent placement day 5 -patient is afebrile, creatinine is improving 1.22 -patient has been able to urinate without discomfort, burning, hematuria -Patient stated she no longer has nausea and vomiting or right lower quadrant pain -CT abdomen and pelvis- revealed hydronephrosis and hydroureter on the right with a right distal ureter calcification measuring 7mm. Plan: -urology following -Patient will be scheduled by Urology office to return to OR in 2-3. No F/u in office. (3) Pyelonephritis, acute Status: Acute Assessment and plan: Sepsis secondary to the obstructing calculus. Patient denies right lower quadrant pain, fever, chills, nausea, vomiting. WBC 14.9 Creatinine improving 1.26 Plan: Continue Rocephin (see above for abx schedule) (4) Acute kidney injury Status: Acute Assessment and plan: Elevated creatinine at admission Improving and is 1.26 Most likey due to obstructing calculus. Plan: -Avoid nephrotoxic medications -monitor renal function -Patient is to follow up with nephrology- Dr. Harris outpatient (5) Elevated troponin I level Status: Acute Assessment and plan: Trending down. Denies chest pain (6) Chronic steroid use Status: Acute Assessment and plan: Patient takes 5 mg prednisone daily and has been on a taper for roughly 6 weeks from 15 mg. Will continue treatment here (7) DVT prophylaxis Status: Acute Assessment and plan: Patient on Lovenox - Subjective Interval history: Patient is comfortably sitting up in bed watching television She denies abdominal pain, chest pain, dyspnea, nausea, vomiting, fever, chills. She is able to urinate without discomfort, burning, hematuria She stated she had a bowel movement last night Her only complaint is that she has a fever blister and headache which are common to her - Constitutional Vitals: Temp Pulse Resp BP Pulse Ox 98.1 F 91 16 133/88 95 03/23/17 08:30 03/23/17 08:30 03/23/17 08:30 03/23/17 08:30 03/23/17 08:30 General appearance: Present: A&O X 3, pleasant, no acute distress Exam: Gen.: Vitals noted. No acute distress. AAOx3 HEENT: PERRL oropharynx clear, Normocephalic, atraumatic Neck: Supple. No adenopathy. Cardiac: RRR, no murmur, +S1/S2 Pulmonary: CTA bilaterally, no wheezes, rales or rhonchi, equal chest expansion Abdomen: soft, nontender, Bowel sounds noted, no guarding Back: Nontender throughout. Extremities: no BLE edema, nontender calf, no cyanosis or clubbing Neuro: A&Ox3, moves all extremities, no focal deficits Psych: Appropriate mood and behavior Internal Medicine: Result - Labs CBC & Chem 7: 03/23/17 01:05 03/23/17 01:05 Labs: Short CBC 03/23/17 Range/Units 01:05 WBC 14.9 H (4.3-11.1) K/mcL Hgb 10.3 L (11.5-15.4) g/dL Hct 33.1 L (35.3-44.9) % Plt Count 202 (140-400) K/mcL Neutrophils # 10.9 H (1.6-8.9) K/mcL BMP 03/23/17 01:05 Sodium 139 Potassium 3.5 Chloride 113 H Carbon Dioxide 22 BUN 23 H Creatinine 1.26 H Glucose 87 Calcium 9.4 - VTE Documentation of Mechanical Device: Venous foot pump, device Consult Discharge Plan - Plan Instructions: Ciprofloxacin (By mouth), Kidney Stones (DC), Sepsis (DC) Additional Instructions: The patient is to continue the ciprofloxacin for 7 more days. She is to follow up with Dr. Bowers of nephrology outpatient for chronic kidney disease. She has to follow up with urology and 2 to 3 weeks in the OR. She has a return to the hospital should she worsen with fever, chills, abdominal pain. Referrals: Belinda Cleaning, ANGEL [Primary Care Provider] - 03/26/17 9:00 am () Prescriptions: Ciprofloxacin [Cipro] 500 mg PO BID #14 tablet <Faheem Ojeda P - Last Filed: 03/23/17 15:26> Date of Encounter: 03/23/17 - Constitutional Vitals: Temp Pulse Resp BP Pulse Ox 97.7 F 75 17 119/74 94 03/23/17 12:00 03/23/17 12:00 03/23/17 12:00 03/23/17 12:00 03/23/17 12:00 Internal Medicine: Result - Labs CBC & Chem 7: 03/23/17 01:05 03/23/17 01:05 Labs: Short CBC 03/23/17 Range/Units 01:05 WBC 14.9 H (4.3-11.1) K/mcL Hgb 10.3 L (11.5-15.4) g/dL Hct 33.1 L (35.3-44.9) % Plt Count 202 (140-400) K/mcL Neutrophils # 10.9 H (1.6-8.9) K/mcL BMP 03/23/17 01:05 Sodium 139 Potassium 3.5 Chloride 113 H Carbon Dioxide 22 BUN 23 H Creatinine 1.26 H Glucose 87 Calcium 9.4 - Attending Attestation I examined this patient and my medical decision-making was reviewed with the Resident Physician. I agree with the documented findings, disposition and treatment plan as described except to the extent set forth below.
[2017-03-23 12:01] VITALS: BP 119/74
--- NOTE | 2017-03-23 13:38 | Discharge Summary ---
<Rhiannon Tee - Last Filed: 03/23/17 13:35> Date of Encounter: 03/23/17 Time of Encounter: 13:36 - Discharge Diagnosis (1) Bacteremia Priority: Primary Status: Acute Comments: -Bacteremia due to calculus in right ureter -s/p: right ureteral stent placement day 4 -Urine Cultures: klebsiella -Blood Culture: Klebsiella -WBC is improving- 14.9 -Patient is afebrile and does not complain of abdominal pain -stable -Repeat blood cultures preliminary report do not show growth Plan - IV Rocephin. Day 7 -will receive 7 days of Cipro 500 BID (2) Right ureteral calculus Priority: Secondary Status: Acute Comments: -s/p: right ureteral stent placement day 5 -patient is afebrile, creatinine is improving 1.26 -patient has been able to urinate without discomfort, burning, hematuria -Patient stated she no longer has nausea and vomiting or right lower quadrant pain -CT abdomen and pelvis- revealed hydronephrosis and hydroureter on the right with a right distal ureter calcification measuring 7mm. Plan: -urology following -Patient will be scheduled by Urology office to return to OR in 2-3. No F/u in office. (3) Pyelonephritis, acute Priority: Secondary Status: Acute Comments: Sepsis secondary to the obstructing calculus. Resolved Patient denies right lower quadrant pain, fever, chills, nausea, vomiting. WBC 14.9 Creatinine improving 1.26 (4) Acute kidney injury Priority: Secondary Status: Acute Comments: Elevated creatinine at admission Improving and is 1.26 Most likey due to obstructing calculus. Plan: -Avoid nephrotoxic medications -monitor renal function -Patient is to follow up with nephrology- Dr. Harris outpatient (5) Elevated troponin I level Priority: Secondary Status: Acute Comments: Trended down and was negative denies chest pain (6) Chronic steroid use Priority: Secondary Status: Acute (7) DVT prophylaxis Priority: Secondary Status: Acute Comments: patient was on lovenox - Discharge Medications Prescriptions: Ciprofloxacin [Cipro] 500 mg PO BID #14 tablet Home Medications: Aspirin Enteric Coated [Aspirin EC] 81 mg PO DAILY 03/17/17 [History] Propranolol LA (24 HR) [Inderal LA] 60 mg PO DAILY 03/17/17 [History] Ranitidine HCl [Acid Assessment Nurse] 150 mg PO DAILY PRN 03/17/17 [History] predniSONE [PredniSONE] 5 mg PO DAILY 03/17/17 [History] Ciprofloxacin [Cipro] 500 mg PO BID #14 tablet 03/23/17 [Rx] Allergies/Adverse Reactions: Allergies Amoxicillin [From Augmentin] Adverse Reaction (Verified 03/17/17 20:30) Vomiting clavulanic acid [From Augmentin] Adverse Reaction (Verified 03/17/17 20:30) Vomiting dichloralphenazone [From Midrin] Adverse Reaction (Verified 03/17/17 20:30) Unknown Iodinated Contrast- Oral and IV Dye Adverse Reaction (Verified 03/17/17 20:30) Dizziness Isometheptene Adverse Reaction (Verified 03/17/17 20:30) Unknown Date of admission: 03/18/17 02:37 Primary care physician: Belinda Cleaning CNP - Patient Status Disposition: Home, Self-Care Functional capacity at discharge: independent ambulation Overall status at discharge: patient is back to baseline - Discharge Instructions Instructions: Ciprofloxacin (By mouth), Kidney Stones (DC), Sepsis (DC) Follow Up With: Belinda Cleaning CNP [Primary Care Provider] - 03/26/17 9:00 am () Additional Instructions: The patient is to continue the ciprofloxacin for 7 more days. She is to follow up with Dr. Bowers of nephrology outpatient for chronic kidney disease. She has to follow up with urology and 2 to 3 weeks in the OR. She has a return to the hospital should she worsen with fever, chills, abdominal pain. - Diet and Activity Diet: advance to your usual diet Interval History: Ms. Garcia is a 71 year old female with unknown type of muscular dystrophy, chronic headaches and stage III kidney disease presented with abdominal pain. She states that she woke up around 4:30 this morning abruptly with sharp right lower quadrant abdominal pain. She said that came on without warning and she did not have any other previous pain like this. The pain is described as sharp radiating down to her groin and right back. Pain severity 10 out of 10 at its worse much improved with pain medications. At home she did take Tylenol to try to improve her pain without any relief. Associated symptoms include chills, diaphoresis, nausea vomiting, dry mouth. She denies any chest pain, chest pressure at rest or with exertion or currently. Chest x-ray revealed atelectasis. She denied any dyspnea or wheezing.CT abdomen and pelvis- revealed hydronephrosis and hydroureter on the right with a right distal ureter calcification measuring 7mm. urology was consulted and performed right ureteral stent placement. Creatinine and WBC was elevated. The patient was found to have Bacteremia due to calculus in right ureter. Urine Cultures: klebsiella. Blood Culture: Klebsiella. The patient was started on Rocephin for 7 days. The patient has been able to urinate without discomfort, burning, hematuria. Patient stated she no longer has nausea and vomiting or right lower quadrant pain. The patient is stable, creatinine and white blood cell count has improved. Patient denies chest pain, dyspnea, confusion, abdominal pain, nausea , vomiting, fever, chills, urinary problems. The patient is looking forward to going home. She will take oral ciprofloxacin for 7 more days. She will follow- up with Dr. Bowers of nephrology for her chronic kidney disease. She is to return to the hospital should she worsen. Patient is alert and oriented with full capacity she states a clear understanding of the treatment plan. She is also to follow up with urology in 2 to 3 weeks to return to the OR. Hospital course: Ms. Garcia is a 71 year old female - Time Spent with Patient Total time spent providing and/or coordinating discharge services: - Constitutional Vitals: Temp Pulse Resp BP Pulse Ox 97.7 F 75 17 119/74 94 03/23/17 12:00 03/23/17 12:00 03/23/17 12:00 03/23/17 12:00 03/23/17 12:00 General appearance: Present: A&O X 3, pleasant, no acute distress Exam: Gen.: Vitals noted. No acute distress. AAOx3 HEENT: PERRL oropharynx clear, Normocephalic, atraumatic Neck: Supple. No adenopathy. Cardiac: RRR, no murmur, +S1/S2 Pulmonary: CTA bilaterally, no wheezes, rales or rhonchi, equal chest expansion Abdomen: soft, nontender, Bowel sounds noted, no guarding Back: Nontender throughout. Extremities: no BLE edema, nontender calf, no cyanosis or clubbing Neuro: A&Ox3, moves all extremities, no focal deficits Psych: Appropriate mood and behavior - VTE Documentation of Mechanical Device: Venous foot pump, device <Faheem Ojeda P - Last Filed: 03/23/17 15:27> Date of Encounter: 03/23/17 Date of admission: 03/18/17 02:37 Primary care physician: Belinda Cleaning CNP Hospital course: Ms. Garcia is a 71 year old female - Time Spent with Patient Total time spent providing and/or coordinating discharge services: - Constitutional Vitals: Temp Pulse Resp BP Pulse Ox 97.7 F 75 17 119/74 94 03/23/17 12:00 03/23/17 12:00 03/23/17 12:00 03/23/17 12:00 03/23/17 12:00 - Attending Attestation I examined this patient and my medical decision-making was reviewed with the Resident Physician. I agree with the documented findings, disposition and treatment plan as described except to the extent set forth below. follow up with Nephrology/PCP/Urology in 1-2 weeks
--- NOTE | 2017-03-24 13:22 | Electrocardiograph Report ---
[address] [address] Test Date: 2017-03-22 Pat Name: Jayda Garcia Department: 112 Room: 2A12 Gender: F [employer]: : 1945 Requested By: Sony Gambino Order Number: [id number] Reading MD: Mac Sellers MD Measurements Intervals [place] Rate: 67 P: 8 GA: 143 QRS: -26 QRSD: 84 T: -6 QT: 390 QTc: 406 Interpretive Statements SINUS RHYTHM LOW QRS VOLTAGE IN PRECORDIAL LEADS VOLTAGE CRITERIA FOR LVH Poor R wave progression Electronically Signed On 03-24-2017 13:20:40 EDT by Mac Sellers MD
== END 2017-03-23 14:29 | disposition home or self-care (01) | DRG 872 ==
LOC: EMEROO 17:57 → 2ANU 17:57
PROVIDERS: ADMIT Internal Medicine; ATTEND Internal Medicine